=== PATIENT | female | born 1965 | race Hispanic/Latino ===

== ENCOUNTER 2018-03-17 09:09 | Emergency (ER) | payer MEDICARE, OTHER ==
[2018-03-17 09:15] VITALS: BMI 19.1
[2018-03-17 09:25] VITALS: TEMP 98.3; O2SAT 100
--- NOTE | 2018-03-17 09:38 | ED PDOC ---
Arrival/HPI - General Chief Complaint: Abnormal Skin Integrity Time Seen by Provider: 03/17/18 09:16 Historian: Other ([facility]) - History of Present Illness Narrative History of Present Illness (Text): 03/17/18 09:34 52yr old female with hx of Cerebral palsy presents today sent in by [facility] for evaluation of bruising to anterior left hip. Pt is non verbal. halfway staff state that bruising to left hip was noticed this morning. Staff denies any fall in [facility]. Staff states that patient is at baseline and was ambulating in [facility] today. Past Medical History - Provider Review Nursing Documentation Reviewed: Yes - Travel History Have you recently traveled outside [place] w/in the past 3 mons?: No - Infectious Disease Hx of Infectious Diseases: None - Neurological Other/Comment: cerebral palsy - Gastrointestinal Hx Gastritis: Yes - Psychiatric Hx Substance Use: No - Past Surgical History Past Surgical History: No Previous - Suicidal Assessment Feels Threatened In Home Enviroment: No Family/Social History - Physician Review Nursing Documentation Reviewed: Yes Family/Social History: Unknown Family HX Smoking Status: Never Smoked Hx Alcohol Use: No Hx Substance Use: No Hx Substance Use Treatment: No Allergies/Home Meds Allergies/Adverse Reactions: Allergies Penicillins Allergy (Verified 03/17/18 09:17) RASH Home Medications: Home Meds Medication Instructions Recorded Confirmed Calcium/Vitamin D [Calcium 500 + D 1 tab PO BID 11/15/12 11/15/12 500 mg-125 Iu] Cholecalciferol (Vitamin D3) 1,000 iu PO DAILY 11/15/12 11/15/12 [Vitamin D3] Doxycycline Hyclate 20 mg PO BID 11/15/12 11/15/12 Levonorgestrel-Ethin Estradiol 1 tab PO DAILY 11/15/12 11/15/12 [Quasense 30 Mcg-0.15 mg] Multivit-Minerals/Ferrous Gluc 237 ml PO DAILY 11/15/12 11/15/12 [Centamin 237 ml] Nutritional Supplement [Ensure 1 pud PO DAILY 11/15/12 11/15/12 Pudding W/Nutraflora Fos] Omeprazole 20 mg PO DAILY 11/15/12 11/15/12 Polyethylene Glycol 3350 [Glycolax] 17 gm PO DAILY 11/15/12 11/15/12 Review of Systems - Review of Systems Systems not reviewed;Unavailable: Other (pt is non verbal, unable to respond to any questions) Respiratory: absent: Cough Gastrointestinal: absent: Diarrhea Skin: Other (bruise left hip) Physical Exam Vital Signs Reviewed: Yes Vital Signs Temp Pulse Resp BP Pulse Ox 03/17/18 09:10 98.3 F 83 18 130/93 H 100 Temperature: Afebrile Blood Pressure: Normal Pulse: Regular Respiratory Rate: Normal Appearance: Positive for: Well-Appearing, Non-Toxic, Comfortable Pain Distress: None Mental Status: Positive for: Alert and Oriented X 3 - Systems Exam Head: Present: Atraumatic Mouth: Present: Moist Mucous Membranes Neck: Present: Normal Range of Motion Respiratory/Chest: Present: Clear to Auscultation, Good Air Exchange. No: Respiratory Distress, Accessory Muscle Use Cardiovascular: Present: Regular Rate and Rhythm, Normal S1, S2. No: Murmurs Abdomen: No: Tenderness, Rebound, Guarding Back: Present: Normal Inspection. No: Midline Tenderness, Paraspinal Tenderness Upper Extremity: Present: Normal ROM Lower Extremity: Present: NORMAL PULSES, Normal ROM, Tenderness (pelvis stable; Left hip; + 3x5cm area of ecchymosis noted to the anterior aspect of the left hip; there is minimal tenderness over the bruising, full rom of hip. no knee or distal femur tenderness. no calf tenderness; able to apply weight to left leg; ), Neurovascularly Intact, Capillary Refill < 2 s. No: Swelling, Erythema Neurological: Present: GCS=15, Speech Normal, Motor Func Grossly Intact, Normal Sensory Function Skin: Present: Warm, Dry, Normal Color. No: Rashes Psychiatric: Present: Alert, Oriented x 3 Medical Decision Making ED Course and Treatment: 03/17/18 09:42 52yr old female with hx of Cerebral palsy with bruising to left hip. No trauma per group staff. pt with bruising to left hip xray left hip; FINDINGS: BONES: AP view of the pelvis and frontal and frogleg views of the left hip were performed for left hip bruising and pain. No fracture is seen. Left hip remains in normal position. Mild degenerative changes of the left hip are noted. No femoral head flattening is seen. Trochanters are intact. Pubic rami and symphysis are intact. Mild degenerative changes of the right hip are also seen. No sacroiliac joint widening is noted. JOINTS: No hip joint dislocations seen. See above. SOFT TISSUES: No focal soft tissue hematoma clearly seen in the soft tissues. OTHER FINDINGS: Overall positioning of the pelvis and left hip is somewhat oblique in orientation and should be correlated clinically. IMPRESSION: No appreciable fracture or dislocation. 03/17/18 10:41 pt is non toxic well appearing; vitals are stable. xray shows no fracture. will d/c back to [facility] with orthopedic f/u. impression; hip contusion tylenol every 4 hours as needed for pain follow up with the orthopedist within the next 2 days. Follow up with the primary care physician within the next 2 days. return if symptoms worsen,persist or if new symptoms develop. - RAD Interpretation Radiology Orders: 03/17/18 09:28 Hip Left [HIP MIN 2V W/ PELVIS LT] [RAD] Stat Disposition/Present on Arrival - Present on Arrival Any Indicators Present on Arrival: No History of DVT/PE: No History of Uncontrolled Diabetes: No Urinary Catheter: No History of Decub. Ulcer: No History Surgical Site Infection Following: None - Disposition Have Diagnosis and Disposition been Completed?: Yes Diagnosis: Contusion, hip Disposition: HOME/ ROUTINE Disposition Time: 10:50 Patient Plan: Discharge Condition: GOOD Discharge Instructions (ExitCare): Contusion (DC) Additional Instructions: tylenol every 4 hours as needed for pain follow up with the orthopedist within the next 2 days. Follow up with the primary care physician within the next 2 days. return if symptoms worsen,persist or if new symptoms develop. Referrals: Tommy Parsons DO [Staff Provider] - Follow up with primary Lorena Collado MD [Staff Provider] - Follow up with primary Forms: [place] (French)
--- NOTE | 2018-03-17 10:22 | RAD ---
PROCEDURE: Left Hip X-ray Radiographs. HISTORY: bruising to left hip COMPARISON: None. FINDINGS: BONES: AP view of the pelvis and frontal and frogleg views of the left hip were performed for left hip bruising and pain. No fracture is seen. Left hip remains in normal position. Mild degenerative changes of the left hip are noted. No femoral head flattening is seen. Trochanters are intact. Pubic rami and symphysis are intact. Mild degenerative changes of the right hip are also seen. No sacroiliac joint widening is noted. JOINTS: No hip joint dislocations seen. See above. SOFT TISSUES: No focal soft tissue hematoma clearly seen in the soft tissues. OTHER FINDINGS: Overall positioning of the pelvis and left hip is somewhat oblique in orientation and should be correlated clinically. IMPRESSION: No appreciable fracture or dislocation.
[2018-03-17 11:29] VITALS: BP 129/76; PULSE 82; RESP 16
== END 2018-03-17 11:29 | disposition home or self-care (01) ==
LOC: ED 09:09
DX: S70.02XA Contusion of left hip, initial encounter (principal); X58.XXXA Exposure to other specified factors, initial encounter; G80.9 Cerebral palsy, unspecified

== ENCOUNTER 2018-06-14 15:13 | Emergency (ER) | payer MEDICARE, OTHER ==
[2018-06-14 15:45] VITALS: BMI 27.4
[2018-06-14 15:46] VITALS: BP 147/64; PULSE 89; RESP 19; O2SAT 100
--- NOTE | 2018-06-14 15:54 | ED PDOC ---
Arrival/HPI - General Time Seen by Provider: 06/14/18 15:50 Historian: Caregiver - History of Present Illness Narrative History of Present Illness (Text): 06/14/18 15:51 Information take from caregiver. This 52 yo female is brought to this ED c/o left eye redness since this morning. Caregiver stated while waiting in the ED , left eye redness has improved. Caregiver denies other somatic complains. Time/Duration: Other (see hpi) Context: Home Past Medical History - Provider Review Nursing Documentation Reviewed: Yes - Infectious Disease Hx of Infectious Diseases: None - Neurological Other/Comment: cerebral palsy - Gastrointestinal Hx Gastritis: Yes - Psychiatric Hx Substance Use: No - Past Surgical History Past Surgical History: No Previous - Suicidal Assessment Feels Threatened In Home Enviroment: No Family/Social History - Physician Review Nursing Documentation Reviewed: Yes Family/Social History: Other (noncontributory) Smoking Status: Never Smoked Hx Alcohol Use: No Hx Substance Use: No Hx Substance Use Treatment: No Allergies/Home Meds Allergies/Adverse Reactions: Allergies Penicillins Allergy (Verified 06/14/18 15:45) RASH Home Medications: Home Meds Medication Instructions Recorded Confirmed Calcium/Vitamin D [Calcium 500 + D 1 tab PO BID 11/15/12 11/15/12 500 mg-125 Iu] Cholecalciferol (Vitamin D3) 1,000 iu PO DAILY 11/15/12 11/15/12 [Vitamin D3] Doxycycline Hyclate 20 mg PO BID 11/15/12 11/15/12 Levonorgestrel-Ethin Estradiol 1 tab PO DAILY 11/15/12 11/15/12 [Quasense 30 Mcg-0.15 mg] Multivit-Minerals/Ferrous Gluc 237 ml PO DAILY 11/15/12 11/15/12 [Centamin 237 ml] Nutritional Supplement [Ensure 1 pud PO DAILY 11/15/12 11/15/12 Pudding W/Nutraflora Fos] Omeprazole 20 mg PO DAILY 11/15/12 11/15/12 Polyethylene Glycol 3350 [Glycolax] 17 gm PO DAILY 11/15/12 11/15/12 Review of Systems - Review of Systems Constitutional: Normal. absent: Fatigue, Weight Change, Fevers, Night Sweats Eyes: Other (Left eye redness, which it has improved). absent: Vision Changes, Eye Pain ENT: Normal Respiratory: Normal Cardiovascular: Normal Gastrointestinal: Normal Genitourinary Female: Normal Musculoskeletal: Normal Skin: Normal Neurological: Normal Endocrine: Normal Hemo/Lymphatic: Normal Psychiatric: Normal Physical Exam Vital Signs Temp Pulse Resp BP Pulse Ox 06/14/18 15:45 97.7 F 89 19 147/64 100 Temperature: Afebrile Blood Pressure: Normal Pulse: Regular Respiratory Rate: Normal Appearance: Positive for: Well-Appearing, Non-Toxic, Comfortable Pain Distress: None Mental Status: Positive for: other (baseline behavior as per caregiver) - Systems Exam Head: Present: Atraumatic, Normocephalic Pupils: Present: PERRL Extroacular Muscles: Present: EOMI. No: Entrapment Conjunctiva: Present: Normal. No: Injected Ears: Present: Normal Mouth: Present: Moist Mucous Membranes Neck: Present: Normal Range of Motion Respiratory/Chest: Present: Clear to Auscultation, Good Air Exchange. No: Respiratory Distress, Accessory Muscle Use, Wheezes Cardiovascular: Present: Regular Rate and Rhythm, Normal S1, S2. No: Murmurs Abdomen: No: Tenderness Back: Present: Normal Inspection Upper Extremity: Present: Normal Inspection, Normal ROM Lower Extremity: Present: Normal Inspection, Normal ROM Neurological: Present: GCS=15, CN II-XII Intact, Speech Normal, Motor Func Grossly Intact, Normal Sensory Function, Normal Cerebellar Funct, Gait Normal Skin: Present: Warm, Dry, Normal Color. No: Rashes Psychiatric: Present: Alert Medical Decision Making ED Course and Treatment: 06/14/18 15:57 Re-evaluation. Patient feels better. Discussed results and plan with patient' s caregiver who expresses understanding. All questions answered and there is agreement with the plan to discharge home with instructions. Patient stable for discharge. Return if symptoms persist or worsen. Re-evaluation Time: 15:58 Reassessment Condition: Re-examined, Improved Disposition/Present on Arrival - Present on Arrival Any Indicators Present on Arrival: No History of DVT/PE: No History of Uncontrolled Diabetes: No Urinary Catheter: No History Surgical Site Infection Following: None - Disposition Have Diagnosis and Disposition been Completed?: Yes Diagnosis: Allergic conjunctivitis Disposition: HOME/ ROUTINE Disposition Time: 15:58 Patient Plan: Discharge Condition: GOOD Discharge Instructions (ExitCare): Conjunctivitis (Noninfectious Pinkeye) (DC) Additional Instructions: Call private doctor for follow up visit in 1-2 days. Apply eye drop on affected area. Return to emergency if symptoms worsen. Prescriptions: Ketotifen Fumarate [Zaditor] 1 drop OU BID PRN #1 bottle PRN Reason: Allergy Symptoms Referrals: Carmen Odell MD [Staff Provider] - Follow up with primary [employer] [employer] [facility] [Outside] - Follow up with primary
[2018-06-14 16:31] VITALS: TEMP 97.2
== END 2018-06-14 16:27 | disposition home or self-care (01) ==
LOC: ED 15:13
DX: H10.12 Acute atopic conjunctivitis, left eye (principal)

== ENCOUNTER 2018-07-05 14:28 | Inpatient (IN) | payer MEDICARE, OTHER ==
[2018-07-05 14:42] VITALS: BMI 19.9
[2018-07-05] MEDS ORDERED: Sodium Chloride 0.9% 1,000 ML IV STA (15:05)
--- NOTE | 2018-07-05 15:09 | ED PDOC ---
Arrival/HPI - General Historian: Caregiver - History of Present Illness Symptom Onset: Other (unknown, patient unable to verbalize) Symptom Course: Other (unknown patient unable to verbalize) - General Chief Complaint: Abdominal Pain Time Seen by Provider: 07/05/18 14:36 - History of Present Illness Narrative History of Present Illness (Text): 07/05/18 15:22 Patient is a 52 year old female with PMH of cerebral palsy (patient is non- verbal, unable to assess pain well) who presents from urologist Dr. Fran Heard for evaluation for kidney stones. Patient is present with caregiver who states that she was sent here by Dr. Heard for CT evaluation for kidney stones. She does not know which side the stones are on but states she has a history of stones. Apparently, patient has been vomiting and was subsequently evaluated by her PMD. (Alexander Weaver) Past Medical History - Provider Review Nursing Documentation Reviewed: Yes - Travel History Have you recently traveled outside [place] w/in the past 3 mons?: No - Infectious Disease Hx of Infectious Diseases: None - Cardiac Hx Cardiac Disorders: No - Pulmonary Hx Respiratory Disorders: No - Neurological Other/Comment: cerebral palsy - HEENT Hx HEENT Disorder: No - Renal Hx Kidney Stones: Yes - Endocrine/Metabolic Hx Endocrine Disorders: No - Hematological/Oncological Hx Blood Disorders: No - Integumentary Hx Dermatological Disorder: No - Musculoskeletal/Rheumatological Hx Musculoskeletal Disorders: Yes Hx Osteoporosis: Yes - Gastrointestinal Hx Gastritis: Yes - Genitourinary/Gynecological Hx Genitourinary Disorders: Yes Other/Comment: Fibrocystic breast changes of both breasts - Psychiatric Hx Psychophysiologic Disorder: Yes Hx Substance Use: No Other/Comment: autistic, cerebral palsy. - Past Surgical History Past Surgical History: No Previous - Surgical History Other/Comment: Lithothripsy. Cystoscopy - Suicidal Assessment Feels Threatened In Home Enviroment: No Family/Social History - Physician Review Nursing Documentation Reviewed: Yes Family/Social History: Unknown Family HX Smoking Status: Never Smoked Hx Alcohol Use: No Hx Substance Use: No Hx Substance Use Treatment: No Allergies/Home Meds Allergies/Adverse Reactions: Allergies Penicillins Allergy (Verified 06/14/18 15:45) RASH Home Medications: Home Meds Medication Instructions Recorded Confirmed Calcium/Vitamin D [Calcium 500 + D 1 tab PO BID 11/15/12 11/15/12 500 mg-125 Iu] Cholecalciferol (Vitamin D3) 1,000 iu PO DAILY 11/15/12 11/15/12 [Vitamin D3] Doxycycline Hyclate 20 mg PO BID 11/15/12 11/15/12 Levonorgestrel-Ethin Estradiol 1 tab PO DAILY 11/15/12 11/15/12 [Quasense 30 Mcg-0.15 mg] Multivit-Minerals/Ferrous Gluc 237 ml PO DAILY 11/15/12 11/15/12 [Centamin 237 ml] Nutritional Supplement [Ensure 1 pud PO DAILY 11/15/12 11/15/12 Pudding W/Nutraflora Fos] Omeprazole 20 mg PO DAILY 11/15/12 11/15/12 Polyethylene Glycol 3350 [Glycolax] 17 gm PO DAILY 11/15/12 11/15/12 Review of Systems - Physician Review All systems were reviewed & negative as marked: Yes - Review of Systems Systems not reviewed;Unavailable: Other (hx of cerebral palsy, non-verbal) Physical Exam Vital Signs Reviewed: Yes Temperature: Afebrile Blood Pressure: Normal Pulse: Regular Respiratory Rate: Normal Appearance: Positive for: Non-Toxic, Comfortable Mental Status: Positive for: other (cerebral palsy, consistent with baseline, non-verbal) - Systems Exam Head: Present: Atraumatic, Normocephalic Pupils: Present: PERRL Extroacular Muscles: Present: EOMI Conjunctiva: Present: Normal Mouth: Present: Moist Mucous Membranes Nose (External): Present: Atraumatic Neck: Present: Normal Range of Motion Respiratory/Chest: Present: Clear to Auscultation. No: Wheezes, Rales, Rhonchi Cardiovascular: Present: Regular Rate and Rhythm, Normal S1, S2. No: Murmurs, Rub, Gallop Abdomen: Present: Normal Bowel Sounds Back: No: CVA Tenderness Upper Extremity: Present: Normal ROM, NORMAL PULSES. No: Cyanosis, Edema Lower Extremity: Present: NORMAL PULSES, Normal ROM. No: Edema Neurological: Present: Speech Normal Skin: Present: Warm, Dry Psychiatric: Present: Other (consistent with cerebral palsy baseline) Vital Signs Temp Pulse Resp BP Pulse Ox 07/05/18 21:06 98.7 F 89 18 110/56 L 97 07/05/18 17:49 98.6 F 94 H 19 124/95 H 99 Medical Decision Making - Lab Interpretations I have reviewed the lab results: Yes Interpretation: Abnormal lab values (leukocytosis, mild elevation of ALT/AST, hyperkalemia) - RAD Interpretation Sewer Builder: Radiologist ED Course and Treatment: 07/05/18 15:24 -Patient sent by urologist for evaluation for nephrolithiasis -Unclear whether patient has flank pain or any other manifestations of nephrolithiasis -She has a history of nephrolithiasis -Will get CBC, CMP, UA (obtain by straight cath), CT abdomen wo contrast -1L NS bolus given in ED 07/05/18 17:15 -Elevated WBC noted -Urine pending, will get by straight cath -0.5 mg ativan IVP given for sedation during abdominal/pelvic CT wo contrast 07/05/18 17:57 -CT abdomen pelvis concerning for R-sided obstructing nephrolithiasis -Also found cholelithiasis without evidence for acute cholecystitis -Will obtain abdominal US to further characterize cholelithiasis -UA still pending, discussed need for straight cath with RN 07/05/18 18:04 -Spoke to Dr. Reyes who agrees to admission (Alexander Weaver) Patient Seen With Resident: In agreement with resident note. Patient was seen and evaluated with resident, came up with plan and treatment together. 07/06/18 12:09 pt sent in for vomiting for fci. marked leukocytosis ct neg, discussed with dr reyes with obs (Kenji Hughes) - Lab Interpretations Lab Results: 07/05/18 16:04 07/05/18 16:04 Lab Results 07/05/18 16:04: WBC 15.7 H, RBC 4.27, Hgb 12.7, Hct 37.9, MCV 88.8, MCH 29.7, MCHC 33.5, RDW 13.2, Plt Count 497 H, MPV 9.8, Gran % 77.4 H, Lymph % (Auto) 17.5 L, Dickens % (Auto) 3.9, Eos % (Auto) 1.1 L, Baso % (Auto) 0.1, Gran # 12.13 H , Lymph # (Auto) 2.8, Dickens # (Auto) 0.6, Eos # (Auto) 0.2, Baso # (Auto) 0.02 07/05/18 16:04: Sodium 139, Potassium 5.2 H, Chloride 101, Carbon Dioxide 26, Anion Gap 17, BUN 15, Creatinine 0.5 L, Est GFR ( Amer) > 60, Est GFR ( Non-Af Amer) > 60, Random Glucose 76, Calcium 9.4, Phosphorus 4.1, Magnesium 2.0 , Total Bilirubin 0.5, AST 57 H, ALT 105 H, Alkaline Phosphatase 113, Total Protein 7.6, Albumin 3.7, Globulin 3.8, Albumin/Globulin Ratio 1.0 L, Lipase 89 - RAD Interpretation Narrative RAD Interpretations (Text): 07/05/18 17:55 CT abdomen pelvis wo contrast PROCEDURE: CT Abdomen and Pelvis without intravenous contrast HISTORY: flank pain/vomiting h/o of kidney stones COMPARISON: None. TECHNIQUE: Unenhanced study. Neither oral nor intravenous contrast administered. . Radiation dose: Total exam DLP = 253.15 mGy-cm. This CT exam was performed using one or more of the following dose reduction techniques: Automated exposure control, adjustment of the mA and/or kV according to patient size, and/or use of iterative reconstruction technique. FINDINGS: LOWER THORAX: Unremarkable. LIVER: Unremarkable. No gross lesion or ductal dilatation. GALLBLADDER AND BILE DUCTS: Cholelithiasis without CT evidence of acute cholecystitis. PANCREAS: Unremarkable. No gross lesion or ductal dilatation. SPLEEN: Unremarkable. ADRENALS: Unremarkable. No mass. KIDNEYS AND URETERS: Multiple lower pole calculi right kidney only. No evidence of obstructive uropathy. VASCULATURE: Unremarkable. No aortic aneurysm. BOWEL: Constipation, fecal impaction. APPENDIX: Unremarkable. Normal appendix. PERITONEUM: Unremarkable. No free fluid. No free air. LYMPH NODES: Unremarkable. No enlarged lymph nodes. BLADDER: Unremarkable. REPRODUCTIVE: Unremarkable. BONES: No acute fracture. Scoliosis without appreciable secondary degenerative change. Arachnoid cyst formations sacral spine. OTHER FINDINGS: None. IMPRESSION: Upper tract calculi common nonobstructing right kidney only. Cholelithiasis without CT evidence of acute cholecystitis. (Alexander Weaver) Radiology Orders: 07/05/18 15:05 ABD & PELVIS W/O PO OR IV CONT [CT] Stat - Medication Orders Current Medication Orders: Acetaminophen (Tylenol 325mg Tab) 650 mg PO Q6H PRN PRN Reason: Fever >100.4 F Dextrose/Sodium Chloride (Dextrose 5%/0.45% Ns 1000 Ml) 1,000 mls @ 75 mls/hr IV .[id number] [facility] Last Admin: 07/05/18 19:45 Dose: 75 mls/hr eMAR Start Stop Document 07/05/18 19:45 RG (Rec: 07/05/18 22:45 RG [id number]) Intravenous Solution Start Date 07/05/18 Start Time 19:30 Metronidazole (Flagyl) 250 mg in 50 mls @ 100 mls/hr IV Q8 CECELIA PRN Reason: Protocol Stop: 07/10/18 22:01 Last Admin: 07/06/18 05:22 Dose: 100 mls/hr eMAR Start Stop Document 07/06/18 05:22 SD (Rec: 07/06/18 05:22 SD [id number]) Intravenous Solution Start Date 07/06/18 Start Time 05:22 Ondansetron HCl (Zofran Inj) 4 mg IVP Q6H PRN PRN Reason: Nausea/Vomiting Pantoprazole Sodium (Protonix Inj) 40 mg IVP DAILY [facility] Last Admin: 07/06/18 09:53 Dose: 40 mg IVP Administration Document 07/06/18 09:53 GM (Rec: 07/06/18 09:54 GM [facility] Charges for Administration # of IVP Administrations 1 Discontinued Medications Sodium Chloride (Sodium Chloride 0.9%) 1,000 mls @ 999 mls/hr IV .Q1H1M STA Stop: 07/05/18 16:05 Last Admin: 07/05/18 16:05 Dose: 999 mls/hr eMAR Start Stop Document 07/05/18 16:05 [email or web address] (Rec: 07/05/18 16:05 [email or web address] [id number]) Intravenous Solution Start Date 07/05/18 Start Time 16:05 End Date 07/05/18 Aztreonam (Azactam 1 Gm) 100 mls @ 100 mls/hr IVPB Q8 CECELIA PRN Reason: Protocol Stop: 07/06/18 06:59 Last Admin: 07/06/18 05:22 Dose: 100 mls/hr eMAR Start Stop Document 07/06/18 05:22 SD (Rec: 07/06/18 05:23 SD [id number]) Intravenous Solution Start Date 07/06/18 Start Time 05:23 Lorazepam (Ativan) 0.5 mg IVP ONCE ONE PRN Reason: Protocol Stop: 07/05/18 15:53 Last Admin: 07/05/18 16:05 Dose: 0.5 mg IVP Administration Document 07/05/18 16:05 [email or web address] (Rec: 07/05/18 16:05 [email or web address] [id number]) Charges for Administration # of IVP Administrations 1 Disposition/Present on Arrival - Present on Arrival Any Indicators Present on Arrival: No History of DVT/PE: No History of Uncontrolled Diabetes: No Urinary Catheter: No History of Decub. Ulcer: No History Surgical Site Infection Following: None - Disposition Have Diagnosis and Disposition been Completed?: Yes Disposition Time: 18:05 Patient Plan: Admission - Disposition Diagnosis: Right nephrolithiasis, Cholelithiasis, Leukocytosis Disposition: HOSPITALIZED Patient Problems: Current Active Problems Problem Status Onset Cholelithiasis Acute Leukocytosis Acute Right nephrolithiasis Acute Condition: FAIR
[2018-07-05 16:43] LABS: BASO # 0.02 K/mm3 (0.0-2.0); BASO % 0.1 % (0.0-3.0); EOS # 0.2 (0.0-0.7); EOS % 1.1 % (1.5-5.0); GRAN # 12.13 (1.4-6.5); GRAN % 77.4 % (50.0-68.0); HEMOGLOBIN 12.7 g/dL (12.0-16.0); LYMPH # 2.8 (1.2-3.4); LYMPH % 17.5 % (22.0-35.0); MEAN CELL VOLUME 88.8 fl (80.0-105.0); MEAN CORPUSCULAR HEMOGLOBIN 29.7 pg (25.0-35.0); MEAN CORPUSCULAR HGB CONC 33.5 g/dl (31.0-37.0); MEAN PLATELET VOLUME 9.8 fl (7.0-11.0); MONO # 0.6 (0.1-0.6); MONO % 3.9 % (1.0-6.0); RBC 4.27 10^6/uL (3.5-6.1); RED CELL DISTRIBUTION WIDTH 13.2 % (11.5-14.5); WHITE BLOOD COUNT 15.7 10^3/ul (4.5-11.0)
[2018-07-05 16:54] LABS: ALBUMIN 3.7 g/dL (3.0-4.8); CALCIUM 9.4 mg/dL (8.4-10.5); GFR AFRICAN-AMERICAN > 60; GFR NON-AFRICAN AMERICAN > 60; LIPASE 89 U/L (23-300)
[2018-07-05 17:06] LABS: ALT/SGPT 105 U/L (7-56); AST/SGOT 57 U/L (14-36); BLOOD UREA NITROGEN 15 mg/dL (7-21)
--- NOTE | 2018-07-05 17:53 | CT ---
Date of service: 07/05/2018 PROCEDURE: CT Abdomen and Pelvis without intravenous contrast HISTORY: flank pain/vomiting h/o of kidney stones COMPARISON: None. TECHNIQUE: Unenhanced study. Neither oral nor intravenous contrast administered. . Radiation dose: Total exam DLP = 253.15 mGy-cm. This CT exam was performed using one or more of the following dose reduction techniques: Automated exposure control, adjustment of the mA and/or kV according to patient size, and/or use of iterative reconstruction technique. FINDINGS: LOWER THORAX: Unremarkable. LIVER: Unremarkable. No gross lesion or ductal dilatation. GALLBLADDER AND BILE DUCTS: Cholelithiasis without CT evidence of acute cholecystitis. PANCREAS: Unremarkable. No gross lesion or ductal dilatation. SPLEEN: Unremarkable. ADRENALS: Unremarkable. No mass. KIDNEYS AND URETERS: Multiple lower pole calculi right kidney only. No evidence of obstructive uropathy. VASCULATURE: Unremarkable. No aortic aneurysm. BOWEL: Constipation, fecal impaction. APPENDIX: Unremarkable. Normal appendix. PERITONEUM: Unremarkable. No free fluid. No free air. LYMPH NODES: Unremarkable. No enlarged lymph nodes. BLADDER: Unremarkable. REPRODUCTIVE: Unremarkable. BONES: No acute fracture. Scoliosis without appreciable secondary degenerative change. Arachnoid cyst formations sacral spine. OTHER FINDINGS: None. IMPRESSION: Upper tract calculi common nonobstructing right kidney only. Cholelithiasis without CT evidence of acute cholecystitis.
[2018-07-05 18:45] LABS: INR 0.94; PARTIAL THROMBOPLASTIN TIME 26.3 Seconds (25.1-36.5); PROTHROMBIN TIME 10.7 SECONDS (9.4-12.5)
[2018-07-05 19:41] LABS: URINE BILIRUBIN NEGATIVE (NEGATIVE); URINE BLOOD MODERATE (NEGATIVE); URINE GLUCOSE (UA) NEGATIVE (NEGATIVE); URINE LEUKOCYTE ESTERASE NEGATIVE Leu/uL (NEGATIVE); URINE PROTEIN TRACE mg/dL (<30 mg/dL); URINE UROBILINOGEN 0.2 E.U./dL (<1 E.U./dL)
[2018-07-05] MEDS: Dextrose 5%/0.45% NS 1,000 ML IV SCH (19:45)
[2018-07-05 19:58] LABS: HCG,QUALITATIVE URINE NEGATIVE (NEGATIVE); URINE APPEARANCE CLEAR (CLEAR); URINE COLOR YELLOW (YELLOW)
[2018-07-05 20:25] LABS: URINE BACTERIA MOD (NEG)
[2018-07-05] MEDS: Aztreonam 1 Gm in NS 100mL 100 ML IVPB SCH (22:45)
[2018-07-05] MEDS: metroNIDAZOLE IV 250mg/50 ml 250 MG/50 ML BAG IV SCH (22:50)
[2018-07-06] MEDS: metroNIDAZOLE IV 250mg/50 ml 250 MG/50 ML BAG IV SCH ×3 (05:22→21:32)
[2018-07-06] MEDS: Aztreonam 1 Gm in NS 100mL 100 ML IVPB SCH (05:22)
--- NOTE | 2018-07-06 06:07 | HP ---
Copied To: Yaz Reyes MD Attending MD: Yaz Reyes MD HISTORY OF PRESENT ILLNESS: The patient is 52-year-old mentally challenged with history of cerebral palsy, was having nausea and vomiting. The patient is nonverbal and non-communicative because she was having abdominal discomfort and nausea. The patient was taken to urologist who has been following her, Dr. Peters , who referred her to emergency room for further evaluation. Unable to get any history from the patient. PAST MEDICAL HISTORY: Her past medical history significant for cerebral palsy and history of gastritis and history of cholelithiasis in the past. ALLERGIES: THE PATIENT IS ALLERGIC TO PENICILLIN. MEDICATIONS AT HOME: 1. The patient is on MiraLax. 2. Omeprazole 20 mg daily. 3. Multivitamin. 4. History of hemorrhoid, on hydrocortisone cream. SOCIAL HISTORY: She lives in [facility] with no history of smoking, drinking or alcohol use. REVIEW OF SYSTEMS: Basically, the patient is mentally challenged, does not offer much complaining. PHYSICAL EXAMINATION: GENERAL: She is awake and alert, nonverbal. VITAL SIGNS: She is afebrile, pulse 89, respiration 18, blood pressure 101/56. LUNGS: Bilateral good airflow. No rhonchi or crackle. HEART: S1, S2 audible. ABDOMEN: Soft, nontender. No rebound, no guarding. NEUROLOGIC: The patient is awake, alert, not communicative. Bilateral leg no edema. LABORATORY DATA: Laboratory exam, WBC 15.7, hemoglobin 12.7, hematocrit 37.9, platelet 497. PT 10.7, INR 0.94. Chemistry, sodium 159, potassium 5.2, chloride 101, CO2 of 26, BUN 15, creatinine 0.5, blood sugar of 476. LFTs shows AST of 57, ALT 105, alk phos is 113. Urinalysis shows moderate blood, negative for nitrites, positive for RBCs and WBCs of 5-10. She had CT scan of the abdomen and pelvis done that shows upper tract calculus that is nonobstructive, right kidney only. Cholelithiasis with no evidence of acute cholecystitis. ASSESSMENT: 1. Intractable nausea with leukocytosis. 2. Mott palsy. 3. History of gastritis. PLAN: The patient will be admitted on med-surg floor. We will start her on IV fluids and cover her empirically with antibiotics. I will order for abdominal sonogram to visualize the gallbladder better. Follow up cultures and follow up electrolyte in a.m. and we will reevaluate in a.m. Yaz Reyes MD
[2018-07-06 07:38] LABS: BASO # 0.01 K/mm3 (0.0-2.0); BASO % 0.1 % (0.0-3.0); EOS # 0.2 (0.0-0.7); EOS % 1.7 % (1.5-5.0); GRAN # 8.24 (1.4-6.5); GRAN % 73.1 % (50.0-68.0); HEMOGLOBIN 13.2 g/dL (12.0-16.0); LYMPH # 2.3 (1.2-3.4); LYMPH % 20.8 % (22.0-35.0); MEAN CELL VOLUME 88.6 fl (80.0-105.0); MEAN CORPUSCULAR HEMOGLOBIN 29.4 pg (25.0-35.0); MEAN CORPUSCULAR HGB CONC 33.2 g/dl (31.0-37.0); MEAN PLATELET VOLUME 9.6 fl (7.0-11.0); MONO # 0.5 (0.1-0.6); MONO % 4.3 % (1.0-6.0); RBC 4.49 10^6/uL (3.5-6.1); RED CELL DISTRIBUTION WIDTH 13.2 % (11.5-14.5); WHITE BLOOD COUNT 11.3 10^3/ul (4.5-11.0)
[2018-07-06 07:47] LABS: ALB/GLOB RATIO 0.9 (1.1-1.8); ALBUMIN 3.7 g/dL (3.0-4.8); ALT/SGPT 109 U/L (7-56); AST/SGOT 60 U/L (14-36); BLOOD UREA NITROGEN 10 mg/dL (7-21); CALCIUM 8.6 mg/dL (8.4-10.5); GFR AFRICAN-AMERICAN > 60; GFR NON-AFRICAN AMERICAN > 60
--- NOTE | 2018-07-06 14:14 | PN ---
Copied To: Yaz Reyes MD Attending MD: Yaz Reyes MD DATE: 07/06/2018 SUBJECTIVE: The patient is 52 years old, nonverbal, does not seem to be in any distress; according to nurse, she finished all her liquid diet and did not vomit. Does not look in any distress. PHYSICAL EXAMINATION: VITAL SIGNS: She is afebrile, pulse 98, respirations 20, blood pressure /78. LUNGS: Bilateral fair airflow. No rhonchi or crackle. HEART: S1 and S2 audible. ABDOMEN: Soft. Nontender. No rebound. No guarding. NEUROLOGICAL: She is awake and alert, nonverbal. EXTREMITIES: Bilateral legs, no edema. LABORATORY DATA: WBC 11.3, hemoglobin 13, hematocrit 39, platelets 454. Chemistries: Sodium 139, potassium 4.3, chloride 103, CO2 of 26, BUN 10, creatinine 0.6, blood sugar of 82. AST 60, ALT 109. Urine shows moderate blood, with wbc's of 5 to 10. Abdominal ultrasound is pending. CT scan shows nephrolithiasis, but nonobstructive. ASSESSMENT: 1. Abnormal liver function tests, etiology unclear. 2. History of cholelithiasis, but no cholecystitis. 3. Probably gastroenteritis. PLAN: We will advance the diet. Continue her on IV fluids. We will follow up the CBC and CMP. Follow up abnormal ultrasound. Yaz Reyes MD
[2018-07-06] MEDS: Dextrose 5%/0.45% NS 1,000 ML IV SCH (14:25)
[2018-07-06 16:33] VITALS: O2SAT 90
--- NOTE | 2018-07-06 17:06 | US ---
Date of service: 07/06/2018 HISTORY: Rule out cholecystitis COMPARISON: Comparison made with CT abdomen pelvis 07/05/2018. TECHNIQUE: Sonographic evaluation of the abdomen. FINDINGS: LIVER: Liver measures approximately 15.5 cm. Smooth contour though increased echotexture likely due to fatty infiltration however other infiltrative hepatic cellular disease process not excluded. . No mass or ascites. . No intrahepatic bile duct dilatation. GALLBLADDER: Cholelithiasis. No sonographic Torres sign COMMON BILE DUCT: Measures 8.4 mm. No stones. No dilatation. PANCREAS: Unremarkable as visualized. No mass. No ductal dilatation. RIGHT KIDNEY: Measures approximately 9.7 x 3.5 x 5.0cm. Normal echogenicity. . Multiple renal calculi are present which were seen to better advantage on prior CT scan. No evidence of hydronephrosis. LEFT KIDNEY: Measures approximately 10.1 x 4.5 x 5.3 thecm. Normal echogenicity. No calculus, mass, or hydronephrosis. SPLEEN: Normal in size and contour. No mass. AORTA: No aneurysmal dilatation. IVC: Unremarkable. OTHER FINDINGS: None. IMPRESSION: Re- demonstrated is cholelithiasis. . Probable fatty hepatic infiltration however other infiltrative hepatic cellular disease process not excluded. Multiple right renal calculi. No hydronephrosis.
--- NOTE | 2018-07-06 17:15 | CON ---
Copied To: Taqueria Suarez MD Attending MD: Taqueria Suarez MD DATE: 07/06/2018 REQUESTING PHYSICIAN: Yaz Reyes MD REASON FOR CONSULTATION: I have been asked to see this 52-year-old female with a history of cerebral palsy who [place] [facility], who was brought to the emergency room for nausea and vomiting. The patient is nonverbal and it is difficult to get any history. There is apparently no abdominal pain. She has not had any further nausea, vomiting in the hospital. CT scan of the abdomen and pelvis performed in the emergency room revealed gallstones. There is no gallbladder wall thickening or pericholecystic fluid. Again, she has not had any further nausea, vomiting. She is tolerating clear liquid diet. History and past medical history is obtained from the chart. PAST MEDICAL HISTORY: Notable for cerebral palsy, gastritis, cholelithiasis. SOCIAL HISTORY: [facility] jail. MEDICATIONS AT HOME: Include MiraLax, omeprazole, multivitamin. REVIEW OF SYSTEMS: A 14-point review of systems is unobtainable as the patient is nonverbal. PHYSICAL EXAMINATION: GENERAL: Middle-aged female lying in bed, appears comfortable. VITAL SIGNS: Reveal temperature of 97.5, blood pressure 132/78, heart rate of 98. HEENT: Reveal sclerae to be white. Conjunctivae pink. NECK: Supple. CHEST: Lungs are clear. HEART: Reveals regular rate and rhythm. ABDOMEN: Soft, nontender. No mass. EXTREMITIES: Show no edema. LABORATORY DATA: Reveal white blood cell count 11.3, hemoglobin 13.2, platelet count of 454. White blood cell count on admission to the hospital is 15.7. Her chemistries reveal her AST is 60, ALT of 109. IMPRESSION: A 52-year-old female admitted to the hospital with nausea and vomiting. She has not had any further nausea and vomiting in the hospital. She does have mildly elevated liver enzymes. Etiology of the liver enzymes are unclear. Upon reviewing her medication list, doxycycline is listed as medication she may have taken at some point in the recent past. It is clear if she continues to take this. She does have asymptomatic gallstones. RECOMMENDATIONS: Advance diet, if tolerated. The patient can be discharged home with outpatient followup of her elevated liver enzymes. Taqueria Suarez MD : 07/06/2018 12:50:46 [facility] # [id number]
[2018-07-07] MEDS: metroNIDAZOLE IV 250mg/50 ml 250 MG/50 ML BAG IV SCH ×3 (05:55→21:52)
[2018-07-07 08:18] LABS: HEPATITIS B SURFACE AG Negative (NEGATIVE)
[2018-07-07 08:24] LABS: HEPATITIS A IGM NEGATIVE (NEGATIVE); HEPATITIS B CORE AB NEGATIVE (NEGATIVE)
[2018-07-07 08:35] LABS: HEPATITIS C ANTIBODY NEGATIVE (NEGATIVE)
[2018-07-07 08:48] LABS: ALB/GLOB RATIO 0.9 (1.1-1.8); ALBUMIN 3.7 g/dL (3.0-4.8); ALT/SGPT 93 U/L (7-56); AST/SGOT 50 U/L (14-36); BLOOD UREA NITROGEN 7 mg/dL (7-21); CALCIUM 8.8 mg/dL (8.4-10.5); GFR AFRICAN-AMERICAN > 60; GFR NON-AFRICAN AMERICAN > 60
--- NOTE | 2018-07-07 13:49 | PN ---
Copied To: Taqueria Suarez MD Attending MD: Taqueria Suarez MD DATE: 07/07/2018 SUBJECTIVE: The patient is lying in bed comfortable. She is nonverbal. There are no further reports of nausea or vomiting by nursing staff. PHYSICAL EXAMINATION: VITAL SIGNS: Reveal temperature of 98.3, blood pressure 123/94, heart rate of 77. HEENT: Reveals sclerae to be white. Conjunctivae pink. NECK: Supple. CHEST: Reveals lungs to be clear. HEART: Reveals a regular rate and rhythm. ABDOMEN: Soft, nontender. EXTREMITIES: Show no edema. LABORATORY DATA: Reveals AST is down to 50, ALT is down to 93. Ultrasound of the abdomen shows fatty liver as well as gallstones. IMPRESSION: A 52-year-old female with cerebral palsy, admitted with nausea and vomiting. I suspect that this was a gastroenteritis. There was no report of any abdominal pain. She does have asymptomatic cholelithiasis as well as fatty liver, which may explain her elevated liver enzymes. Her hepatitis serology is negative. RECOMMENDATIONS: No further GI workup is planned. The patient can be returned to her alf when medically stable. She is stable from a GI standpoint. Taqueria Suarez MD
--- NOTE | 2018-07-07 14:57 | PN ---
Copied To: Nathan Meza MD Attending MD: Nathan Meza MD DATE: 07/07/2018 SUBJECTIVE: The patient is not able to answer much questions. She opens her eyes, tracks. PHYSICAL EXAMINATION: VITAL SIGNS: Temperature is 98.3, pulse of 77, blood pressure is , respiration is 19. GENERAL: The patient is lying in bed, flat, comfortable. HEENT: No oral lesion. Anicteric sclerae. Moist mucosa. NECK: No JVD, adenopathy, or thyromegaly. CARDIOVASCULAR: S1 and S2, regular. No murmurs, rubs, or gallops. LUNGS: Clear to auscultation bilaterally. No wheeze, rales, or rhonchi. ABDOMEN: Bowel sounds are positive, soft, nontender and nondistended. EXTREMITIES: No cyanosis, clubbing or edema. LABORATORY DATA: White count of 11.3. Creatinine is 0.6. Abdominal ultrasound shows cholelithiasis; hepatic infiltration, probably fat; multiple renal calculi. ASSESSMENT: 1. Gastroenteritis. 2. Cholelithiasis. 3. Right-sided kidney stones. 4. Fatty liver. 5. Nausea and vomiting, improved. 6. Transaminitis. PLAN: The patient is currently on Flagyl. She is going to continue on IV fluids. The patient had urine cultures that were negative. She is receiving Protonix daily. She is on Tylenol. I did review Dr. Suarez's note. Nathan Meza MD
[2018-07-07 16:35] VITALS: RESP 20; TEMP 97.8
[2018-07-08] MEDS: metroNIDAZOLE IV 250mg/50 ml 250 MG/50 ML BAG IV SCH (06:02)
--- NOTE | 2018-07-08 12:05 | DS ---
Copied To: Yaz Reyes MD Attending MD: Yaz Reyes MD HISTORY OF PRESENT ILLNESS: The patient is 52 years old, lying in bed, offers no complaint. As per nurse, she is eating and tolerating. She does have some involuntary movement. PHYSICAL EXAMINATION: VITAL SIGNS: She is afebrile, pulse 78, respirations 20, blood pressure 127/70. LUNGS: Bilateral good airflow. No rhonchi or crackle. HEART: S1 and S2 audible. ABDOMEN: Soft. Nontender. No rebound. No guarding. NEUROLOGICAL: She is awake and alert, not communicative. LABORATORY EXAM: Her AST 50, ALT 93. Otherwise, CMP is within normal range. Urinalysis is unremarkable. Hepatitis profile is negative. Abdominal ultrasound shows cholelithiasis with fatty liver, multiple right renal calculi, but no hydronephrosis. ASSESSMENT AND PLAN: Abdominal pain, etiology unclear. The patient seems to be eating and tolerating. Her LFTs are coming down. I will order for CBC and CMP stat. If it is trending down, we will discharge the patient and will be followed by her primary medical doctor. I will give her dose of Risperdal for involuntary movement and she will be followed with her . Yaz Reyes MD
[2018-07-08 13:17] LABS: BASO # 0.02 K/mm3 (0.0-2.0); BASO % 0.2 % (0.0-3.0); EOS # 0.2 (0.0-0.7); GRAN # 8.27 (1.4-6.5); GRAN % 72.5 % (50.0-68.0); HEMOGLOBIN 13.9 g/dL (12.0-16.0); LYMPH # 2.3 (1.2-3.4); LYMPH % 19.9 % (22.0-35.0); MEAN CELL VOLUME 88.4 fl (80.0-105.0); MEAN CORPUSCULAR HEMOGLOBIN 29.8 pg (25.0-35.0); MEAN CORPUSCULAR HGB CONC 33.7 g/dl (31.0-37.0); MEAN PLATELET VOLUME 9.5 fl (7.0-11.0); MONO # 0.6 (0.1-0.6); MONO % 5.4 % (1.0-6.0); RBC 4.67 10^6/uL (3.5-6.1); RED CELL DISTRIBUTION WIDTH 13.1 % (11.5-14.5); WHITE BLOOD COUNT 11.4 10^3/ul (4.5-11.0)
[2018-07-08 15:50] LABS: ALB/GLOB RATIO 0.9 (1.1-1.8); ALBUMIN 3.7 g/dL (3.0-4.8); ALT/SGPT 83 U/L (7-56); AST/SGOT 42 U/L (14-36); BLOOD UREA NITROGEN 13 mg/dL (7-21); CALCIUM 9.1 mg/dL (8.4-10.5); GFR AFRICAN-AMERICAN > 60; GFR NON-AFRICAN AMERICAN > 60
[2018-07-08 17:00] VITALS: BP 114/64; PULSE 90
== END 2018-07-08 17:57 | disposition home or self-care (01) | DRG 392 ==
LOC: ED 14:28 → ERH 18:00 → 3RNO 22:01 → OBSVTOIN 07-06 11:53
PROVIDERS: ADMIT Internal Medicine; ATTEND Internal Medicine
DX: K52.9 Noninfective gastroenteritis and colitis, unspecified (principal); K80.20 Calculus of gallbladder without cholecystitis without obstruction; N20.0 Calculus of kidney; K76.0 Fatty (change of) liver, not elsewhere classified; G80.9 Cerebral palsy, unspecified; G51.0 Bell's palsy; K29.70 Gastritis, unspecified, without bleeding; M81.0 Age-related osteoporosis without current pathological fracture; Z88.0 Allergy status to penicillin

== ENCOUNTER 2018-08-12 13:08 | Observation (INO) | payer MEDICARE, OTHER ==
[2018-08-12 13:09] VITALS: BMI 19.9
[2018-08-12 14:49] VITALS: RESP 18
--- NOTE | 2018-08-12 15:24 | ED PDOC ---
Arrival/HPI <Fran Underwood DO - Last Filed: 08/12/18 17:41> - General Historian: Caregiver - History of Present Illness Time/Duration: 24 hours Symptom Onset: Sudden Symptom Course: Unchanged Quality: Unable to Describe Activities at Onset: Light <JessicaNaga - Last Filed: 08/12/18 18:53> - General Chief Complaint: Lower Extremity Problem/Injury Time Seen by Provider: 08/12/18 14:59 - History of Present Illness Narrative History of Present Illness (Text): 08/12/18 15:18 52 yo F with PMHx of cerebral palsy, kidney stones, gastritis, and fibrocystic breast presenting to the ED from [facility] with acute onsert swelling of the R knee x 1 day. Per caregiver at bedside, patient awoke this morning with swelling and pain of the R knee. Staff denies any fall or inciting trauma. Patient is nonverbal but grimaces, makes noise to endorse pain. No other acute complaints at this time. Unable to retrieve ROS due to patient being nonverbal. PMHx: cerebral palsy, kidney stones, chronic gastritis, fibrocystic breast PSHx: unknown Allergies: PCN Home Medications: as per chart Social: Pt is nonverbal, hx of cerebral palsy. Comes from [facility]. (Naga Lopez) Past Medical History - Provider Review Nursing Documentation Reviewed: Yes - Travel History Have you recently traveled outside [place] w/in the past 3 mons?: No - Infectious Disease Hx of Infectious Diseases: None - Reproductive Menopause: No - Cardiac Hx Cardiac Disorders: No - Pulmonary Hx Respiratory Disorders: No - Neurological Other/Comment: cerebral palsy - HEENT Hx HEENT Disorder: No - Renal Hx Kidney Stones: Yes - Endocrine/Metabolic Hx Endocrine Disorders: No - Hematological/Oncological Hx Blood Disorders: No - Integumentary Hx Dermatological Disorder: No - Musculoskeletal/Rheumatological Hx Falls: No - Gastrointestinal Hx Gastritis: Yes - Genitourinary/Gynecological Hx Genitourinary Disorders: Yes Other/Comment: Fibrocystic breast changes of both breasts - Psychiatric Hx Psychophysiologic Disorder: Yes Hx Substance Use: No Other/Comment: autistic, cerebral palsy. - Past Surgical History Past Surgical History: No Previous - Surgical History Other/Comment: Lithothripsy. Cystoscopy - Suicidal Assessment Feels Threatened In Home Enviroment: No <Naga Lopez - Last Filed: 08/12/18 18:53> Family/Social History - Physician Review Nursing Documentation Reviewed: Yes Family/Social History: Unknown Family HX Smoking Status: Never Smoked Hx Alcohol Use: No Hx Substance Use: No Hx Substance Use Treatment: No <Naga Lopez - Last Filed: 08/12/18 18:53> Allergies/Home Meds <Fran Underwood DO - Last Filed: 08/12/18 17:41> <Naga Lopez - Last Filed: 08/12/18 18:53> Allergies/Adverse Reactions: Allergies Penicillins Allergy (Verified 06/14/18 15:45) RASH Home Medications: Home Meds Medication Instructions Recorded Confirmed Calcium/Vitamin D [Calcium 500 + D 1 tab PO BID 11/15/12 11/15/12 500 mg-125 Iu] Cholecalciferol (Vitamin D3) 1,000 iu PO DAILY 11/15/12 11/15/12 [Vitamin D3] Doxycycline Hyclate 20 mg PO BID 11/15/12 11/15/12 Levonorgestrel-Ethin Estradiol 1 tab PO DAILY 11/15/12 11/15/12 [Quasense 0.15-0.03 mg Tablet] Multivit-Minerals/Ferrous Gluc 237 ml PO DAILY 11/15/12 11/15/12 [Centamin Liquid] Nutritional Supplement [Ensure 1 pud PO DAILY 11/15/12 11/15/12 Pudding W/Nutraflora Fos] Omeprazole 20 mg PO DAILY 11/15/12 11/15/12 Polyethylene Glycol 3350 [Glycolax] 17 gm PO DAILY 11/15/12 11/15/12 Review of Systems - Review of Systems Systems not reviewed;Unavailable: Other (Patient nonverbal at baseline, hx of cerebral palsy) <Naga Lopez - Last Filed: 08/12/18 18:53> Physical Exam <Fran Underwood DO - Last Filed: 08/12/18 17:41> - Physical Exam Physical Exam Limitations: Other (chronic medical condition) Vital Signs Reviewed: Yes Temperature: Afebrile Blood Pressure: Hypertensive Pulse: Regular Respiratory Rate: Normal Appearance: Positive for: Non-Toxic Pain Distress: Mild Mental Status: Positive for: other - Systems Exam Head: Present: Atraumatic, Normocephalic Pupils: Present: PERRL Extroacular Muscles: Present: EOMI Conjunctiva: Present: Normal Mouth: Present: Moist Mucous Membranes Respiratory/Chest: Present: Clear to Auscultation. No: Respiratory Distress, Wheezes, Rales, Rhonchi Cardiovascular: Present: Regular Rate and Rhythm, Normal S1, S2 Abdomen: Present: Normal Bowel Sounds. No: Tenderness, Distention, Rebound, Guarding Back: Present: Normal Inspection Upper Extremity: Present: NORMAL PULSES. No: Cyanosis, Edema Lower Extremity: Present: NORMAL PULSES. No: Edema, Cyanosis Skin: Present: Dry, Normal Color. No: Rashes Psychiatric: Present: Alert <Naga Lopez - Last Filed: 08/12/18 18:53> - Physical Exam Narrative Physical Exam (Text): 08/12/18 15:30 R knee visibly swollen, non-erythematous, not warm to touch, fluctuant TTP along medial joint line. (Naga Lopez) Vital Signs Temp Pulse Resp BP Pulse Ox 08/12/18 17:14 97.8 F 80 18 115/63 95 08/12/18 14:44 97.8 F 78 18 165/77 H 92 L Medical Decision Making - RAD Interpretation Herbicide Sprayer: Radiologist <Fran Underwood DO - Last Filed: 08/12/18 17:41> <Naga Lopez - Last Filed: 08/12/18 18:53> ED Course and Treatment: 08/12/18 15:40 Impression: 52 year old female presenting to the ED from [facility] with acute onset swelling of the R knee x 1 day. Patient Seen with Resident: In agreement with resident note which contains more details about the patient. Patient seen and evaluated with resident. Came up with plan and treatment together. Plan: -- COMP metabolic panel -- CBC with differential -- Blood culture -- X-Ray of Right knee, 2 views (AP&LAT) -- Reassess and disposition Prior Visits: Notes and results from previous visits were reviewed. Patient was last seen in the emergency department on 07/05/[address] Fran Heard for evaluation for kidney stones. Patient was hospitalized with the following diagnosis: Right nephrolithiasis, Cholelithiasis and Leukocytosis. Progress Notes: (Fran Underwood DO) 08/12/18 15:35 Impression: 52 yo F with PMHx of cerebral palsy presenting with acute onset R knee swelling x 1 day, r/o septic arthritis Plan: -- CBC, CMP -- BCx -- XR R knee (Adalbertocisano,Naga) - Lab Interpretations Lab Results: 08/12/18 15:15 08/12/18 15:15 Lab Results 08/12/18 15:15: Sodium 140, Potassium 4.0, Chloride 104, Carbon Dioxide 28, Anion Gap 12, BUN 12, Creatinine 0.8, Est GFR ( Amer) > 60, Est GFR (Non- Af Amer) > 60, Random Glucose 89, Calcium 8.9, Total Bilirubin 0.4, AST 22, ALT 26, Alkaline Phosphatase 84, Total Protein 6.8, Albumin 3.6, Globulin 3.2, Albumin/Globulin Ratio 1.1 08/12/18 15:15: WBC 11.0, RBC 4.50, Hgb 13.5, Hct 40.3, MCV 89.6, MCH 30.0, MCHC 33.5, RDW 13.5, Plt Count 300, MPV 10.8, Gran % 66.5, Lymph % (Auto) 24.2, [place] % (Auto) 4.4, Eos % (Auto) 4.7, Baso % (Auto) 0.2, Gran # 7.33 H, Lymph # (Auto) 2.7, [place] # (Auto) 0.5, Eos # (Auto) 0.5, Baso # (Auto) 0.02 - RAD Interpretation Narrative RAD Interpretations (Text): FINDINGS: BONES: There is diffuse bone demineralization. There is no acute displaced fracture or bone destruction. Bone alignment is normal. JOINTS: Moderate degenerative osteoarthrosis in the lateral compartment with reduced joint space and marginal spurring. JOINT EFFUSION: Small suprapatellar joint effusion. OTHER FINDINGS: None. IMPRESSION: No acute displaced fracture or dislocation. (Fran Underwood DO) Radiology Orders: 08/12/18 15:16 KNEE RIGHT 2 VIEWS (AP & LAT) [RAD] Stat - Medication Orders Current Medication Orders: Vancomycin HCl (Vancomycin 1gm) 1 gm in 250 mls @ 167 mls/hr IVPB DAILY CECELIA PRN Reason: Protocol - PA / MEDICAL CARE ADMINISTRATOR / Resident Statement LASHELL has reviewed & agrees with the documentation as recorded. / has examined the patient and agrees with the treatment plan. - Scribe Statement The provider has reviewed the documentation as recorded by the Scribe <Fran Underwood DO - Last Filed: 08/12/18 17:41> <Naga Lopez - Last Filed: 08/12/18 18:53> - Scribe Statement Mercy Fry All medical record entries made by the Scribe were at my direction and personally dictated by me. I have reviewed the chart and agree that the record accurately reflects my personal performance of the history, physical exam, medical decision making, and the department course for this patient. I have also personally directed, reviewed, and agree with the discharge instructions and disposition. (Fran Underwood DO) Disposition/Present on Arrival <Fran Underwood DO - Last Filed: 08/12/18 17:41> - Present on Arrival Any Indicators Present on Arrival: No History of DVT/PE: No History of Uncontrolled Diabetes: No Urinary Catheter: No History of Decub. Ulcer: No History Surgical Site Infection Following: None - Disposition Have Diagnosis and Disposition been Completed?: Yes Disposition Time: 05:15 <Naga Lopez - Last Filed: 08/12/18 18:53> - Disposition Diagnosis: Cholelithiasis, Right nephrolithiasis Condition: STABLE
[2018-08-12 16:04] LABS: BASO # 0.02 K/mm3 (0.0-2.0); BASO % 0.2 % (0.0-3.0); EOS # 0.5 (0.0-0.7); EOS % 4.7 % (1.5-5.0); GRAN # 7.33 (1.4-6.5); GRAN % 66.5 % (50.0-68.0); HEMOGLOBIN 13.5 g/dL (12.0-16.0); LYMPH # 2.7 (1.2-3.4); LYMPH % 24.2 % (22.0-35.0); MEAN CELL VOLUME 89.6 fl (80.0-105.0); MEAN CORPUSCULAR HGB CONC 33.5 g/dl (31.0-37.0); MEAN PLATELET VOLUME 10.8 fl (7.0-11.0); MONO # 0.5 (0.1-0.6); MONO % 4.4 % (1.0-6.0); RBC 4.5 10^6/uL (3.5-6.1); RED CELL DISTRIBUTION WIDTH 13.5 % (11.5-14.5)
[2018-08-12 16:16] LABS: ALB/GLOB RATIO 1.1 (1.1-1.8); ALBUMIN 3.6 g/dL (3.0-4.8); ALT/SGPT 26 U/L (7-56); AST/SGOT 22 U/L (14-36); BLOOD UREA NITROGEN 12 mg/dL (7-21); CALCIUM 8.9 mg/dL (8.4-10.5); GFR NON-AFRICAN AMERICAN > 60
--- NOTE | 2018-08-12 17:39 | RAD ---
Date of service: 08/12/2018 PROCEDURE: Right Knee Radiographs. HISTORY: r/o fx COMPARISON: None. FINDINGS: BONES: There is diffuse bone demineralization. There is no acute displaced fracture or bone destruction. Bone alignment is normal. JOINTS: Moderate degenerative osteoarthrosis in the lateral compartment with reduced joint space and marginal spurring. JOINT EFFUSION: Small suprapatellar joint effusion. OTHER FINDINGS: None. IMPRESSION: No acute displaced fracture or dislocation.
[2018-08-12] MEDS ORDERED: Non Formulary Medication (Ketotifen Fumarate [Zaditor] 1 DROP) OU PRN (19:08)
[2018-08-12] MEDS ORDERED: Vancomycin 1gm in NS 250ml 1 GM/250 ML BAG IVPB SCH (19:15)
[2018-08-12 21:11] VITALS: O2SAT 98
[2018-08-12] MEDS ORDERED: MethylPREDNISolone 40 mg Vial IV SCH (22:00)
[2018-08-13] MEDS ORDERED: Influenza Vaccine 60 mcg/0.5 mL SYR (4YR UP) IM ONE (00:35)
[2018-08-13] MEDS ORDERED: Pneumococcal 23-Valent Vaccine IM ONE (00:35)
--- NOTE | 2018-08-13 01:53 | HP ---
HISTORY OF PRESENT ILLNESS: The patient is 52 years old, who is mentally challenged with a history of cerebral palsy, nephrolithiasis. 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 The patient is pretty much bed bound and not able to give history according to caregiver. The swelling of right knee was more than usual. There is no history of trauma. NO fall. No history of fever or chills. No history of nausea or vomiting. The patient is not communicative. PAST MEDICAL HISTORY: Significant for, 1. Nephrolithiasis. 2. Cerebral palsy. 3. Gastritis. 4. Fibrocystic disease. 5. Cholelithiasis. ALLERGY: SHE IS NOT ALLERGIC TO PENICILLIN. MEDICATIONS AT HOME: She is on, 1. MiraLax. 2. Omeprazole 20 mg daily. 3. Multivitamin. 4. History of hemorrhoid and use of Anusol cream. SOCIAL HISTORY: [place] with no history of smoking, drinking or alcohol use. REVIEW OF SYSTEMS: Significant for right knee swelling. PHYSICAL EXAMINATION: GENERAL: The patient is awake and alert, nonverbal. VITAL SIGNS: She is afebrile, pulse 80, respirations 18, blood pressure 115/63. LUNGS: Bilateral fair airflow. No rhonchi or crackle. HEART: S1 and S2 audible. ABDOMEN: Soft. Nontender. No rebound. No guarding. NEUROLOGICAL: The patient is awake and alert, but nonverbal. SKIN: Slight erythema of right knee. EXTREMITIES: Limited mobility. LABORATORY EXAM: WBC is 11, hemoglobin is 13.5, hematocrit 40.3, platelet 300. Chemistry: Sodium 140, potassium 4, chloride 104, CO2 of 28, BUN 12, creatinine 0.8, blood sugar of 89. LFTs are within normal limits. X-ray of the knee was done that shows degenerative joint disease, but no fracture or dislocation. ASSESSMENT: 1. Right knee osteoarthritis erythema. Rule out septic arthritis. 2. Cerebral palsy. 3. Gastritis. PLAN: I will start the patient on antiinflammatory. Give her dose of Solu-Medrol, start her on Mobic. Resume her usual medications. Start her on Protonix. We will reevaluate in the a.m. Possible discharge in the a.m. Yaz Reyes MD [facility] # [id number]
[2018-08-13 07:56] VITALS: BP 126/80; PULSE 77; TEMP 97.7
[2018-08-13] MEDS ORDERED: [UNRECOGNIZED DRUG - OTHER] PO SCH (10:00)
[2018-08-13] MEDS ORDERED: POLYETHYLENE GLYCOL 17 GM PO SCH (10:00)
[2018-08-13] MEDS ORDERED: POLYETHYLENE GLYCOL 3350 17 GM/Dose PACKET PO SCH (10:00)
[2018-08-13] MEDS ORDERED: Vancomycin 1gm in NS 250ml 1 GM/250 ML BAG IVPB SCH (10:00)
--- NOTE | 2018-08-13 11:47 | CON ---
DATE: 08/13/2018 ORTHOPEDIC CONSULT The patient is a 52-year-old female with autism who has the diagnosis of joint swelling. I examined her, I did not feel any effusion of either joints, elbows or wrist. She also has history of osteoarthritis. So, I am going to order x-rays of her pelvis and do physical therapy. I could touch the knee joints and there is no appreciable discomfort and the x-ray just showed a little arthritis of the right knee, but I am going to get the x-ray of the pelvis and hips and do physical therapy and to evaluate the knee again but I do not see any effusion to aspirate. Right now, final diagnosis is mild osteoarthritis, right knee and we will evaluate her again after more x-rays are done. Tommy Parsons DO MTDD
--- NOTE | 2018-08-13 17:04 | RAD ---
Date of service: 08/13/2018 PROCEDURE: Radiographs of the pelvis. HISTORY: R/O osteoarthritis COMPARISON: 03/17/2018 FINDINGS: BONES: Pelvic Bones: Unremarkable. Hips: Mild bilateral hip arthrosis left greater than right JOINTS: Sacroiliac Joints: Unremarkable. Pubic Symphysis: Unremarkable. OTHER FINDINGS: Bilateral hemipelvic phlebolith. Right larger than left IMPRESSION: Mild bilateral hip arthrosis left greater than right. Hemipelvic phleboliths. Similar
--- NOTE | 2018-08-14 07:19 | DS ---
HISTORY OF PRESENT ILLNESS: The patient is 52 years old, seen and examined. She is nonverbal, non communicative. Does not look in any distress. Her knee erythema and swelling has subsided by antiinflammatory, seems to be at her baseline. PHYSICAL EXAMINATION: VITAL SIGNS: She is afebrile, pulse 77, respirations 18, blood pressure 126/80. LUNGS: Bilateral good airflow. No rhonchi or crackle. HEART: S1 and S2 audible. ABDOMEN: Soft, nontender. No rebound. No guarding. NEUROLOGIC: Patient is awake, alert, but not communicative, nonverbal because of her cerebral palsy. She has tremors in upper extremities. Does not look in any pain. LABORATORY DATA: Blood work seems to be within normal range, was evaluated by Orthopedics. IMPRESSION: She has osteoarthritis. PLAN: So, patient can be discharged back to [facility] with NSAID and she will be followed by their doctor as outpatient. Yaz Reyes MD
== END 2018-08-13 21:05 | disposition home or self-care (01) ==
LOC: ED 13:08 → ERH 18:19 → 5RNO 21:49
PROVIDERS: ADMIT Internal Medicine; ATTEND Internal Medicine
DX: M17.11 Unilateral primary osteoarthritis, right knee (principal); F84.0 Autistic disorder; G80.9 Cerebral palsy, unspecified; K29.70 Gastritis, unspecified, without bleeding; K80.20 Calculus of gallbladder without cholecystitis without obstruction; N20.0 Calculus of kidney; N60.19 Diffuse cystic mastopathy of unspecified breast; Z79.899 Other long term (current) drug therapy; Z87.442 Personal history of urinary calculi
CPT/HCPCS: 72170; 73560; 80053; 85025; 87040; 96365; 96375; 99284; G0378; J2920

== ENCOUNTER 2019-02-27 14:50 | Emergency (ER) | payer MEDICARE, OTHER ==
[2019-02-27 14:51] VITALS: BMI 19.9
[2019-02-27 15:43] VITALS: TEMP 99.1
--- NOTE | 2019-02-27 16:22 | ED PDOC ---
Arrival/HPI - General Chief Complaint: Lower Extremity Problem/Injury Time Seen by Provider: 02/27/19 16:04 Historian: Caregiver - History of Present Illness Narrative History of Present Illness (Text): 02/27/19 16:13 53 year old female, with past medical history of arthritis, presents to the ED from [facility] accompanied by group art supervisor for evaluation for right knee swelling since today. Patient is non-verbal at baseline and history is obtained from caregiver. As per caregiver, patient experienced similar joint swelling in the past secondary to arthritis. Caregiver denies any new trauma or injury but requests imaging to rule out any fractures. Caregiver denies any other somatic complaints including fever, chills, nausea, vomiting, headache, dizziness or any other complaints. Time/Duration: Prior to Arrival Symptom Onset: Gradual Symptom Course: Unchanged Activities at Onset: Light Context: Other ([facility]) Past Medical History - Provider Review Nursing Documentation Reviewed: Yes - Infectious Disease Hx of Infectious Diseases: None - Reproductive Menopause: No - Cardiac Hx Cardiac Disorders: No - Pulmonary Hx Respiratory Disorders: No - Neurological Other/Comment: cerebral palsy;autistic - HEENT Hx HEENT Disorder: No - Renal Hx Kidney Stones: Yes - Endocrine/Metabolic Hx Endocrine Disorders: No - Hematological/Oncological Hx Blood Disorders: No - Integumentary Hx Dermatological Disorder: No - Musculoskeletal/Rheumatological Hx Falls: No - Gastrointestinal Hx Gastrointestinal Disorders: Yes Other/Comment: Helicobacter pylori gastritis - Genitourinary/Gynecological Hx Genitourinary Disorders: Yes Other/Comment: Fibrocystic breast changes of both breasts - Psychiatric Hx Psychophysiologic Disorder: Yes Hx Substance Use: No Other/Comment: autistic, cerebral palsy. - Past Surgical History Past Surgical History: No Previous - Surgical History Other/Comment: Lithothripsy. Cystoscopy - Suicidal Assessment Feels Threatened In Home Enviroment: No Family/Social History - Physician Review Nursing Documentation Reviewed: Yes Family/Social History: Unknown Family HX Smoking Status: Never Smoked Hx Alcohol Use: No Hx Substance Use: No Hx Substance Use Treatment: No Allergies/Home Meds Allergies/Adverse Reactions: Allergies Penicillins Allergy (Verified 06/14/18 15:45) RASH Home Medications: Home Meds Medication Instructions Recorded Confirmed Calcium/Vitamin D [Calcium 500 + D 1 tab PO BID 11/15/12 11/15/12 500 mg-125 Iu] Cholecalciferol (Vitamin D3) 1,000 iu PO DAILY 11/15/12 11/15/12 [Vitamin D3] Doxycycline Hyclate 20 mg PO BID 11/15/12 11/15/12 Levonorgestrel-Ethin Estradiol 1 tab PO DAILY 11/15/12 11/15/12 [Quasense 0.15-0.03 mg Tablet] Multivit-Minerals/Ferrous Gluc 237 ml PO DAILY 11/15/12 11/15/12 [Centamin Liquid] Nutritional Supplement [Ensure 1 pud PO DAILY 11/15/12 11/15/12 Pudding W/Nutraflora Fos] Omeprazole 20 mg PO DAILY 11/15/12 11/15/12 Polyethylene Glycol 3350 [Glycolax] 17 gm PO DAILY 11/15/12 11/15/12 Review of Systems - Review of Systems Systems not reviewed;Unavailable: Other (non-verbal at baseline) Constitutional: absent: Fevers Respiratory: absent: Cough Gastrointestinal: absent: Diarrhea, Vomiting Genitourinary Female: absent: Urine Output Changes Musculoskeletal: Joint Swelling (Right knee swelling) Skin: absent: Rash Neurological: absent: Focal Weakness, Gait Changes Physical Exam Vital Signs Reviewed: Yes Vital Signs Temp Pulse Resp BP Pulse Ox 02/27/19 15:36 99.1 F 110 H 20 116/57 L 98 Temperature: Afebrile Blood Pressure: Normal Pulse: Tachycardic Respiratory Rate: Normal Appearance: Positive for: Well-Appearing, Non-Toxic, Comfortable Pain Distress: None Mental Status: Positive for: other (Patient non-verbal at baseline) - Systems Exam Head: Present: Atraumatic, Normocephalic Pupils: Present: PERRL Extroacular Muscles: Present: EOMI Conjunctiva: Present: Normal Mouth: Present: Moist Mucous Membranes Respiratory/Chest: Present: Clear to Auscultation, Good Air Exchange. No: Respiratory Distress, Accessory Muscle Use Cardiovascular: Present: Regular Rate and Rhythm, Normal S1, S2. No: Murmurs Abdomen: No: Tenderness, Distention, Peritoneal Signs Upper Extremity: Present: Normal Inspection. No: Cyanosis, Edema Lower Extremity: Present: NORMAL PULSES, Swelling (Mildly swollen right knee), Neurovascularly Intact. No: Edema, CALF TENDERNESS Neurological: Present: GCS=15, Other (Ambulating without any difficulty ) Skin: Present: Warm, Dry, Normal Color. No: Rashes Psychiatric: Present: Alert Medical Decision Making ED Course and Treatment: 02/27/19 16:26 Impression: 53 year old female presents to the ED for evaluation of right knee swelling. Plan: -- Ibuprofen -- X-ray of right knee -- Reassess and disposition Prior Visits: Notes and results from previous visits were reviewed. Progress Notes: 02/27/19 17:32 IMPRESSION: Degenerative changes including tricompartmental narrowing. no acute displaced fracture, dislocation, or significant joint effusion identified. If symptoms persist, or if there is continued clinical concern, x-ray follow-up in 7-10 days should be considered. - RAD Interpretation Radiology Orders: 02/27/19 16:11 KNEE RIGHT 2 VIEWS (AP & LAT) [RAD] Stat - Medication Orders Current Medication Orders: Ibuprofen (Motrin Tab) 600 mg PO STAT STA Stop: 02/27/19 16:13 - Scribe Statement The provider has reviewed the documentation as recorded by the Scribe Alhaji Alexis. All medical record entries made by the Scribe were at my direction and personally dictated by me. I have reviewed the chart and agree that the record accurately reflects my personal performance of the history, physical exam, medical decision making, and the department course for this patient. I have also personally directed, reviewed, and agree with the discharge instructions and disposition. Disposition/Present on Arrival - Present on Arrival Any Indicators Present on Arrival: No History of DVT/PE: No History of Uncontrolled Diabetes: No Urinary Catheter: No History of Decub. Ulcer: No History Surgical Site Infection Following: None - Disposition Have Diagnosis and Disposition been Completed?: Yes Diagnosis: Degenerative joint disease of knee, right Disposition: HOME/ ROUTINE Disposition Time: 17:33 Patient Plan: Discharge Condition: GOOD Discharge Instructions (ExitCare): Osteoarthritis Additional Instructions: Follow-up with PMD within 2 days. Motrin for pain. Return to ED if condition worsens. Follow-up with Orthopedics Referrals: Yvette Zafar MD [Primary Care Provider] - Follow up with primary Rashard Grant MD [Staff Provider] - Follow up with primary Forms: [employer] (Latvian)
--- NOTE | 2019-02-27 17:27 | RAD ---
PROCEDURE: Right Knee Radiographs. Two views. HISTORY: R knee swelling COMPARISON: Right knee radiographs performed 08/12/18 FINDINGS: BONES: No acute displaced fracture. Degenerative changes including tenting of the intercondylar notch. JOINTS: No dislocation. JOINT EFFUSION: Tricompartmental narrowing. No significant joint effusion. OTHER FINDINGS: None. IMPRESSION: Degenerative changes including tricompartmental narrowing. no acute displaced fracture, dislocation, or significant joint effusion identified. If symptoms persist, or if there is continued clinical concern, x-ray follow-up in 7-10 days should be considered.
[2019-02-27 17:33] VITALS: RESP 18
[2019-02-27 18:03] VITALS: BP 124/55; PULSE 90; O2SAT 97
== END 2019-02-27 18:04 | disposition home or self-care (01) ==
LOC: ED 14:50
DX: M17.11 Unilateral primary osteoarthritis, right knee (principal)